=== PATIENT | female | born 1955 | race Asian ===

== ENCOUNTER 2017-07-29 15:01 | Emergency (ER) | payer SELFPAY ==
[2017-07-29] MEDS: IBUPROFEN 600 MG TAB PO (16:03)
== END 2017-07-29 18:31 | disposition home or self-care (01) ==
LOC: FTE 15:01
DX: M25.552 Pain in left hip (principal); I10 Essential (primary) hypertension; M54.5 Low back pain
CPT/HCPCS: 72100; 73520; 99284-25